=== PATIENT | female | born 1960 | race Caucasian/White ===

== ENCOUNTER 2017-03-01 14:45 | Emergency (ER) | payer OTHER ==
--- NOTE | 2017-03-01 15:21 | ER Document Report ---
ED Medical Screen (RME) - General Chief Complaint: Swelling of Lower Extremity Stated Complaint: BREATHING ISSUES Time Seen by Provider: 03/01/17 15:07 Mode of Arrival: Ambulatory Information source: Patient Notes: 56 yr old female presents with complaints of bilateral lower extremity pain swelling. pt admits to sob I have greeted and performed a rapid initial assessment of this patient. A comprehensive ED assessment and evaluation of the patient, analysis of test results and completion of the medical decision making process will be conducted by additional ED providers. PHYSICAL EXAMINATION: GENERAL: Well-appearing, well-nourished and in no acute distress. HEAD: Atraumatic, normocephalic. EYES: Pupils equal round extraocular movements intact, conjunctiva are normal. ENT: Nares patent NECK: Normal range of motion LUNGS: No respiratory distress Musculoskeletal: Normal range of motion NEUROLOGICAL: Normal speech, normal gait. PSYCH: Normal mood, normal affect. SKIN: cold extremites, mild erythema of the left , no calf pain TRAVEL OUTSIDE OF THE [place] IN LAST 30 DAYS: No - Related Data Allergies/Adverse Reactions: aspirin [Aspirin] Allergy (Verified 03/01/17 15:06) Sulfa (Sulfonamide Antibiotics) Allergy (Verified 03/01/17 15:06) Past Medical History - Social History Chew tobacco use (# tins/day): No Frequency of alcohol use: None Drug Abuse: None Neurological Medical History: Reports: Hx Seizures - Last seizure 2012 Renal/ Medical History: Denies: Hx Peritoneal Dialysis Past Surgical History: Reports: Hx Appendectomy, Hx Hysterectomy Physical Exam - Vital signs Vitals: Temp Pulse Resp BP Pulse Ox 98.1 F 70 18 135/76 H 100 03/01/17 14:54 03/01/17 14:54 03/01/17 14:54 03/01/17 14:54 03/01/17 14:54 Course - Vital Signs Vital signs: Temp Pulse Resp BP Pulse Ox 98.1 F 70 18 135/76 H 100 03/01/17 14:54 03/01/17 14:54 03/01/17 14:54 03/01/17 14:54 03/01/17 14:54
[2017-03-01 16:14] LABS: ABSOLUTE BASOPHILS # (AUTO) 0.1 10^3/uL (0.0-0.2); ABSOLUTE EOSINOPHILS # (AUTO) 0.4 10^3/uL (0.0-0.6); ABSOLUTE LYMPHOCYTES (AUTO) 2.4 10^3/uL (0.5-4.7); ABSOLUTE MONOCYTES (AUTO) 0.5 10^3/uL (0.1-1.4); ABSOLUTE NEUT (AUTO) 4.2 10^3/uL (1.7-8.2); BASOPHILS % (AUTO) 1.4 % (0-2); EOSINOPHILS % (AUTO) 4.7 % (0-6); HEMATOCRIT 40.3 % (36.0-47.0); HEMOGLOBIN 13.8 g/dL (12.0-15.5); HGB HCT DIFFERENCE 1.1; LYMPHOCYTES % (AUTO) 31.2 % (13-45); MEAN CORPUSCULAR HEMOGLOBIN 31.7 pg (27.0-33.4); MEAN CORPUSCULAR HGB CONC 34.3 g/dL (32.0-36.0); MEAN CORPUSCULAR VOLUME 92 fl (80-97); MONOCYTES % (AUTO) 6.9 % (3-13); RED BLOOD COUNT 4.37 10^6/uL (3.72-5.28); RED CELL DISTRIBUTION WIDTH 13.2 % (11.5-14.0); SEGMENTED NEUTROPHILS % (AUTO) 55.8 % (42-78); WHITE BLOOD COUNT 7.6 10^3/uL (4.0-10.5)
--- NOTE | 2017-03-01 16:16 | RADIOLOGY REPORT (SQ) ---
EXAM DESCRIPTION: CHEST PA/LAT COMPLETED DATE/TIME: 03/01/2017 4:09 pm REASON FOR STUDY: lower extremity edema COMPARISON: 09/24/2014 EXAM PARAMETERS: NUMBER OF VIEWS: two views TECHNIQUE: Digital Frontal and Lateral radiographic views of the chest acquired. RADIATION DOSE: NA LIMITATIONS: none FINDINGS: LUNGS AND PLEURA: No opacities, masses or pneumothorax. No pleural effusion. MEDIASTINUM AND HILAR STRUCTURES: No masses or contour abnormalities. HEART AND VASCULAR STRUCTURES: Heart normal size. No evidence for failure. BONES: No acute findings. HARDWARE: None in the chest. OTHER: No other significant finding. IMPRESSION: NO SIGNIFICANT RADIOGRAPHIC FINDING IN THE CHEST. TECHNICAL DOCUMENTATION: JOB ID: [id number] [employer]- All Rights Reserved
[2017-03-01 16:39] LABS: ALANINE AMINOTRANSFERASE 23 U/L (9-52); ALBUMIN 4.7 g/dL (3.5-5.0); ALKALINE PHOSPHATASE 131 U/L (38-126); ANION GAP 13 (5-19); ASPARTATE AMINO TRANSFERASE 26 U/L (14-36); BILIRUBIN,DIRECT 0.4 mg/dL (0.0-0.4); BILIRUBIN,TOTAL 0.5 mg/dL (0.2-1.3); BLOOD UREA NITROGEN 11 mg/dL (7-20); CALCIUM 10.2 mg/dL (8.4-10.2); CARBON DIOXIDE 23 mmol/L (22-30); CHLORIDE 107 mmol/L (98-107); CREATINE KINASE 99 U/L (30-135); CREATININE RESULT 0.81 mg/dL (0.52-1.25); GLUCOSE 77 mg/dL (75-110); SODIUM 142.8 mmol/L (137-145); TOTAL PROTEIN 8.2 g/dL (6.3-8.2)
[2017-03-01 16:40] LABS: POTASSIUM 4.1 mmol/L (3.6-5.0)
[2017-03-01 16:51] LABS: CREATINE KINASE MB 1.52 ng/mL (<4.55)
[2017-03-01 16:52] LABS: TROPONIN I < 0.012 ng/mL
--- NOTE | 2017-03-01 18:45 | XCELERA REPORT ---
[address] [address] Lower Extremity Venous Evaluation Name: GOVIND YA Age: 56 yrs Gender: Female : 1960 Patient Status: Preadmit Patient Location: ER Study Date: 03/01/2017 03:22 PM Procedure: Color flow and duplex imaging of the veins of the left lower extremity as well as the right Common Femoral vein. Reason For Study: left lower extremity Ordering Physician: TWAN PARIS Performed By: Yanet Ibarra Right Sided Venous Evaluation The right common femoral vein is fully compressible. Spontaneous and phasic flow is present in the right common femoral vein. Left Sided Venous Evaluation Normal vessel filling wall to wall, compression and augmentation as well as Colour flow down to the infrageniculate veins. Interpretation Summary No duplex evidence of DVT or obstruction in the left lower extremity nor in the right Common Femoral vein. : TWAN PARIS > Larry Dailey
--- NOTE | 2017-03-01 20:07 | RADIOLOGY REPORT (SQ) ---
EXAM DESCRIPTION: CTA CHEST COMPLETED DATE/TIME: 03/01/2017 7:53 pm REASON FOR STUDY: sob COMPARISON: Chest x-ray dated 03/01/2017 TECHNIQUE: CT scan of the chest performed using helical scanning technique with dynamic intravenous contrast injection. Images reviewed with lung, soft tissue and bone windows. Reconstructed coronal and sagittal MPR images reviewed. Additional 3 dimensional post-processing performed to develop Maximal Intensity Projection images (VT P). All images stored on PACS. All CT scanners at this facility use dose modulation, iterative reconstruction, and/or weight based d osing when appropriate to reduce radiation dose to as low as reasonably achievable (ALARA). [facility]: Dose Right [facility]: CareDose [facility]: Dose Right [facility]: Teradose 4D [facility]: [employer] CONTRAST TYPE AND DOSE: contrast/concentration: Isovue 370.00 mg/ml; Total Contrast Delivered: 59.0 ml; Total Saline Delivered: 70.0 ml Contrast bolus optimized for the pulmonary arteries. Not diagnostic for the aorta. RENAL FUNCTION: Creatinine 0.81 RADIATION DOSE: Up-to-date CT equipment and radiation dose reduction techniques were employed. CTDIv ol: 4.7 - 5.6 mGy. DLP: 171 mGy-cm. . LIMITATIONS: None. FINDINGS: LUNGS AND PLEURA: No masses, infiltrates, pneumothorax. No pleural effusions, calcificati ons. AORTA AND GREAT VESSELS: No aneurysm. Contrast bolus not optimized for the aorta. HEART: No pericardial effusion. No significant coronary artery calcifications. PULMONARY ARTERIES: No emboli visualized in the main pulmonary arteries or the segmental branches. HILAR AND MEDIASTINAL STRUCTURES: No identified masses or abnormal nodes. HARDWARE: None in the chest. UPPER ABDOMEN: No significant findings. Limited exam. THYROID AND OTHER SOFT TISSUES: No masses. No adenopathy. BONES: No acute or significant finding. 3D MIPS: Confirm above findings. OTHER: No other significant finding. IMPRESSION: NORMAL CTA OF THE CHEST. NO PULMONARY EMBOLI. COMMENT: Quality ID # [id number]: Final reports with documentation of one or more dose reduction techniques (e.g., Automated exposure control, adjustment of the mA and/or kV according to patient size, use of iterative reconstruction technique) TECHNICAL DOCUMENTATION: JOB ID: [id number] [employer]- All Rights Reserved
--- NOTE | 2017-03-01 22:01 | ER Document Report ---
ED General - General Chief Complaint: Swelling of Lower Extremity Stated Complaint: BREATHING ISSUES Time Seen by Provider: 03/01/17 15:07 Mode of Arrival: Ambulatory Information source: Patient Notes: This is a 56-year-old female with no significant medical problems who presents to the emergency room with leg swelling for the past few days, burning in the legs and she states she was a little short of breath today. She denies chest pain. She denies any recent fevers, chills, nausea vomiting. She denies any recent travel. TRAVEL OUTSIDE OF THE [place] IN LAST 30 DAYS: No - HPI Onset: Last week Onset/Duration: Gradual Quality of pain: No pain Severity: None Pain Level: Denies Associated symptoms: Shortness of breath. denies: Chest pain, Fever Exacerbated by: Denies Relieved by: Denies Similar symptoms previously: No Recently seen / treated by doctor: No - Related Data Allergies/Adverse Reactions: aspirin [Aspirin] Allergy (Verified 03/01/17 15:06) Sulfa (Sulfonamide Antibiotics) Allergy (Verified 03/01/17 15:06) Past Medical History - General Information source: Patient - Social History Smoking Status: Current Some Day Smoker Cigarette use (# per day): Yes - 1-2 cigs/day Chew tobacco use (# tins/day): No Frequency of alcohol use: None Drug Abuse: None Lives with: Family Family History: Reviewed & Not Pertinent Patient has suicidal ideation: No Patient has homicidal ideation: No - Medical History Medical History: Negative Neurological Medical History: Reports: Hx Seizures - Last seizure 2012 Renal/ Medical History: Denies: Hx Peritoneal Dialysis Past Surgical History: Reports: Hx Appendectomy, Hx Hysterectomy Review of Systems - Review of Systems Constitutional: denies: Chills, Fever EENT: No symptoms reported Cardiovascular: No symptoms reported Respiratory: See HPI - Lungs coarse Gastrointestinal: No symptoms reported Genitourinary: No symptoms reported Female Genitourinary: No symptoms reported Musculoskeletal: See HPI Skin: No symptoms reported - History Hematologic/Lymphatic: No symptoms reported Neurological/Psychological: No symptoms reported Physical Exam - Vital signs Vitals: Temp Pulse Resp BP Pulse Ox 98.1 F 70 18 135/76 H 100 03/01/17 14:54 03/01/17 14:54 03/01/17 14:54 03/01/17 14:54 03/01/17 14:54 Notes: Physical exam: GENERAL: 56-year-old female, alert and oriented 3, no acute distress HEAD: Atraumatic, normocephalic. EYES: Pupils equal round and reactive to light, extraocular movements intact, sclera anicteric, conjunctiva are normal. ENT: TMs normal, nares patent, oropharynx clear without exudates. Moist mucous membranes. NECK: Normal range of motion, supple without obvious mass or JVD. LUNGS: Breath sounds clear to auscultation bilaterally and equal. No wheezes rales or rhonchi. HEART: Regular rate and rhythm without murmurs, rubs or gallops. ABDOMEN: Soft, normoactive bowel sounds. No tenderness to palpation. No guarding, no rebound. No masses appreciated. EXTREMITIES: Normal range of motion, no pitting or edema. Mild asymmetry with slight swelling of the left lower extremity, no calf pain. No clubbing or cyanosis. NEUROLOGICAL: Cranial nerves II through XII grossly intact. Normal speech, moving all extremities. PSYCH: Normal mood, normal affect. SKIN: Warm, Dry, normal turgor, no rashes or lesions noted. Course - Re-evaluation Re-evalutation: 03/01/17 21:57 Note: Given the presentation, lower extremity Dopplers and a CTA which was performed both of which are negative. The patient was watched several hours and appears to be comfortable. A delayed cardiac enzyme was sent and that is completely normal. - Vital Signs Vital signs: Temp Pulse Resp BP Pulse Ox 98.2 F 61 16 141/68 H 98 03/01/17 22:29 03/01/17 22:29 03/01/17 22:29 03/01/17 22:29 03/01/17 22:29 - Laboratory Result Diagrams: 03/01/17 15:56 03/01/17 15:56 Laboratory results interpreted by me: 03/01/17 15:56 Alkaline Phosphatase 131 H - Diagnostic Test Radiology reviewed: Image reviewed, Reports reviewed - CTA shows no evidence of pulmonary emboli. Lower extremity Dopplers show no evidence of DVT. Discharge - Discharge Clinical Impression: Dyspnea, Radiculopathy Condition: Stable Disposition: HOME, SELF-CARE Instructions: Radiculopathy ([facility]) Additional Instructions: As we discussed, and the CT of the chest and the lower extremity Doppler ultrasound showed no evidence of pulmonary emboli or blood clots in the legs. Delayed sets of cardiac enzymes were normal. Your sugar, electrolytes and kidney tests and anemia studies were normal. Thank you for choosing [facility] for your care. The examination and treatment you have received in the Emergency Department today has been rendered on an emergency basis only and is not intended to be a substitute for complete medical care. You should contact your follow-up physician as it is important that he or she examine you for any new or remaining problems. If given a copy of any lab tests or radiology reports, please bring them with you when you see your physician. If your problem worsens or new symptoms appear and you are unable to arrange prompt follow-up care, return to the Emergency Department. Specific signs to look out for: Worsening pain, chest pain, worsening shortness of breath, fever (temperature greater than 100.5, worsening swelling of the legs, any concerns getting worse. Any other instructions: Take ibuprofen for the pain. When you follow-up with a primary care doctor: Bring a copy of today's labs with you when you go. Primary Care Doctor's affiliated with [facility]: If you do not have a primary care doctor or you are unable to get an apointment during that time, you can try one of the doctor's below. These are internal medicine doctor's that have admitting priveledges to the hospital ( they will see you both in the office as well as in this hospital if you are ever hospitalized here). Dr. Elena Ortez [address], [place] [address] [phone] Dr Suazo Address: [address] [place] [address] [place] [address] Dr Schneider Address: [address] [place] [address] [place] [address] Forms: Return to Work
[2017-03-01 22:33] VITALS: BP 141/68
== END 2017-03-01 22:33 | disposition home or self-care (01) ==
LOC: ER 14:45
DX: M54.10 Radiculopathy, site unspecified (principal); R06.00 Dyspnea, unspecified; M79.89 Other specified soft tissue disorders; R06.02 Shortness of breath; F17.200 Nicotine dependence, unspecified, uncomplicated
CPT/HCPCS: 36415; 71020; 71275; 80053; 82550; 82553; 83880; 84484; 85025; 93971; 99285

== ENCOUNTER 2017-03-15 04:52 | Emergency (ER) | payer OTHER ==
[2017-03-15] MEDS ORDERED: ONDANSETRON HCL INJ/PF 4 MG/2 ML SDV IV ONE (05:11)
[2017-03-15] MEDS ORDERED: MORPHINE SULFATE 10 MG/ML INJ IV ONE (05:11)
--- NOTE | 2017-03-15 05:12 | ER Document Report ---
ED Extremity Problem, Lower - General Chief Complaint: Knee Pain Stated Complaint: FALL/KNEE PAIN Time Seen by Provider: 03/15/17 05:04 Notes: Patient is a 56-year-old female who comes emergency department for chief complaint of left knee pain, she states that she tripped over a curb and landed on the cement on her left knee. She denies any other injuries. She is not on a blood thinner. She denies hip pain, back pain. She comes by EMS, she was given 70 mcg of in route. TRAVEL OUTSIDE OF THE [place] IN LAST 30 DAYS: No - Related Data Allergies/Adverse Reactions: aspirin [Aspirin] Allergy (Verified 03/01/17 15:06) Sulfa (Sulfonamide Antibiotics) Allergy (Verified 03/01/17 15:06) Past Medical History - General Information source: Patient - Social History Smoking Status: Never Smoker Frequency of alcohol use: None Drug Abuse: None Lives with: Family Family History: Reviewed & Not Pertinent Neurological Medical History: Reports: Hx Seizures - Last seizure 2012 Renal/ Medical History: Denies: Hx Peritoneal Dialysis Past Surgical History: Reports: Hx Appendectomy, Hx Hysterectomy Review of Systems - Review of Systems Constitutional: No symptoms reported EENT: No symptoms reported Cardiovascular: No symptoms reported Respiratory: No symptoms reported Gastrointestinal: No symptoms reported Genitourinary: No symptoms reported Female Genitourinary: No symptoms reported Musculoskeletal: See HPI Skin: No symptoms reported Hematologic/Lymphatic: No symptoms reported Neurological/Psychological: No symptoms reported Physical Exam - Vital signs Vitals: Temp Pulse Resp BP Pulse Ox 98.0 F 68 18 116/71 94 03/15/17 05:02 03/15/17 05:02 03/15/17 05:02 03/15/17 05:02 03/15/17 05:02 Interpretation: Normal - General General appearance: Appears well, Alert In distress: None - HEENT Head: Normocephalic, Atraumatic Eyes: Normal Pupils: PERRL - Respiratory Respiratory status: No respiratory distress Chest status: Nontender. No: Tender Breath sounds: Normal Chest palpation: Normal - Cardiovascular Rhythm: Regular Heart sounds: Normal auscultation Murmur: No - Abdominal Inspection: Normal Distension: No distension Bowel sounds: Normal Tenderness: Nontender Organomegaly: No organomegaly - Back Back: Normal, Nontender - Extremities General upper extremity: Normal inspection, Nontender, Normal color, Normal ROM , Normal temperature General lower extremity: Other - Tenderness directly over the patella of the left knee. No obvious swelling. No ecchymosis. Normal hip exam, range of motion is still intact at the knee but is painful. Normal ankle exam. Normal distal neurovascular exam. - Neurological Neuro grossly intact: Yes Cognition: Normal Orientation: AAOx4 Joe Coma Scale Eye Opening: Spontaneous [place] Coma Scale Verbal: Oriented [place] Coma Scale Motor: Obeys Commands [place] Coma Scale Total: 15 Speech: Normal Motor strength normal: LUE, RUE, LLE, RLE Sensory: Normal - Psychological Associated symptoms: Normal affect, Normal mood - Skin Skin Temperature: Warm Skin Moisture: Dry Skin Color: Normal Course - Re-evaluation Re-evalutation: Patient with no signs of injury. Denies head injury or any injury other than her knee. Patient with tenderness directly over the patella of the left knee but otherwise her examination is unremarkable. X-ray showing small effusion but no fracture. Patient placed in immobilizer, referred to orthopedics, discussed treatment, return precautions, patient states understanding and agreement. - Vital Signs Vital signs: Temp Pulse Resp BP Pulse Ox 98.0 F 77 18 142/78 H 98 03/15/17 05:02 03/15/17 06:45 03/15/17 06:45 03/15/17 06:45 03/15/17 06:45 Procedures - Immobilization Left knee Pre-Proc Neuro Vasc Exam: Normal Immobilizer type: Knee immobilizer Performed by: RN Post-Proc Neuro Vasc Exam: Normal Alignment checked and good: Yes Discharge - Discharge Clinical Impression: Fall Qualifiers: Encounter type: initial encounter Qualified Code(s): W19.XXXA - Unspecified fall, initial encounter Left knee injury Qualifiers: Encounter type: initial encounter Qualified Code(s): S89.92XA - Unspecified injury of left lower leg, initial encounter Condition: Stable Disposition: HOME, SELF-CARE Additional Instructions: X-ray of your knee shows a small effusion below the kneecap, this suggests some internal/ligamentous/connective tissue injury but no fracture is seen. Recommendation is to wear the knee immobilizer, use the crutches, apply ice to the area 3-4 times a day for 10-15 minutes, take the anti-inflammatory, and follow-up with your primary care provider. If symptoms of pain and swelling continue please follow-up with the orthopedic referral. Return to the emergency department if he develop any concerning symptoms including severe swelling, redness, numbness, etc. Prescriptions: Naproxen [Naprosyn 375 Mg Tablet] 375 mg PO BID #20 tablet Forms: Parent Work Note Referrals: LUCHO COATES MD [Primary Care Provider] - Follow up as needed ALDA PIEDRA MD [ACTIVE STAFF] - Follow up in 1 week
--- NOTE | 2017-03-15 05:58 | RADIOLOGY REPORT (SQ) ---
EXAM DESCRIPTION: KNEE LEFT 3 VIEWS CLINICAL HISTORY: 56 years, Female, fall COMPARISON: None. NUMBER OF VIEWS: 3 TECHNIQUE: [place] radiographic technique. LIMITATIONS: None. FINDINGS: Bones appear osteopenic. No fractures or dislocations. Small suprapatellar joint effusion. IMPRESSION: Small joint effusion. No fractures or dislocations. 2011 [employer]- All Rights Reserved
[2017-03-15] MEDS ORDERED: HYDROCODONE/ACETAMINOPHEN 5-325 MG 6 TAB/DSPK PO PRN (06:23)
[2017-03-15 06:46] VITALS: BP 142/78
== END 2017-03-15 06:45 | disposition home or self-care (01) ==
LOC: ER 04:52
DX: S89.92XA Unspecified injury of left lower leg, initial encounter (principal); M25.562 Pain in left knee; M25.462 Effusion, left knee; W10.1XXA Fall (on)(from) sidewalk curb, initial encounter; Z88.6 Allergy status to analgesic agent; Z88.2 Allergy status to sulfonamides
CPT/HCPCS: 99284; 96374; 96375; 73562; L1830; J2270; J2405

== ENCOUNTER → 2017-05-07 | Outpatient (CLI) | payer OTHER ==
--- NOTE | 2017-05-07 12:49 | WOMENS IMAGING REPORT ---
EXAM DESCRIPTION: 3D SCREENING MAMMO BILAT COMPLETED DATE/TIME: 05/07/2017 10:20 am REASON FOR STUDY: ROUTINE SCREENING; Z12.31 Z12.31 ENCNTR SCREEN MAMMOGRAM FOR MALIGNANT NEOPLASM O F RADHA COMPARISON: None. TECHNIQUE: Standard craniocaudal and mediolateral oblique views of each breast recorded using digita l acquisition and breast tomosynthesis. LIMITATIONS: None. FINDINGS: No masses, calcifications or architectural distortion. No areas of suspicion. Read with the assistance of CAD. .[facility] - R2 [employer] Version 1.3 .[facility] Imaging - R2 C[employer] Version 1.3 .[facility] - R2 Cenova Version 2.4 .[facility] - R2 Cenova Version 2.4 .[facility] - R2 Psychology Professor Version 9.2 IMPRESSION: NORMAL MAMMOGRAM. BIRADS 1. BREAST DENSITY: b. There are scattered areas of fibroglandular density. BIRAD: 1 NEGATIVE RECOMMENDATION: ROUTINE SCREENING COMMENT: The patient has been notified of the results by letter per SA requirements. Additional no tification policies are in place for contacting patient with suspicious or incomplete findings. Quality ID #[id number]: The [employer] recommends an annual screening mammogram for women aged 40 years or over. This facility utilizes a reminder system to ensure that all patients receive reminder letters, and/or direct phone calls for appointments. This includes reminders for routine scr eening mammograms, diagnostic mammograms, or other Breast Imaging Interventions when appropriate. Th is patient will be placed in the appropriate reminder system. The [employer] (ACR) has developed recommendations for screening MRI of the breast s in certain patient populations, to be used in conjunction with mammography. Breast MRI surveillanc e may be appropriate for women with more than 20% lifetime risk of developing breast cancer as deter mined by genetic testing, significant family history of the disease, or history of mantle radiation f or Hodgkins Disease. ACR Practice Guidelines 2008. DBT Technology DBT is a type of tomographic mammography. With conventional mammography, overlapping breast tissue ma y make lesions difficult to detect, even with good compression. DBT uses an x-ray tube that rotates a round the breast, taking images at different angles. These images are then combined to create thin sl ices of the breast that the radiologist can view as a 3D reconstruction. The ARI unit can perform full-field digital mammograms (2D imaging); or DBT (3D imaging); or both, in a combination mode that quickly performs both the mammogram and the tomosynthesis scan while the breast is still compressed. PQRS 6045F: Fluoroscopic imaging is not utilized for breast tomosynthesis. TECHNICAL DOCUMENTATION: FINDING NUMBER: (1) ASSESSMENT: (1) JOB ID: [id number] [employer] All Rights Reserved
== END ==
LOC: WI 08:36
PROVIDERS: ATTEND Physician Assistant
DX: Z12.31 Encounter for screening mammogram for malignant neoplasm of breast (principal)
CPT/HCPCS: 77063; G0202; 77067